=== PATIENT | female | born 1945 | race Caucasian/White ===

== ENCOUNTER 2020-04-29 10:08 | Emergency (ER) | payer OTHER, SELFPAY ==
[2020-04-29 10:17] VITALS: BP 129/74; PULSE 63; RESP 18; TEMP 37.2; O2SAT 99
--- NOTE | 2020-04-29 10:42 | ED.FEMALEGU ---
HPI - Female Genitourinary General Chief complaint: Urogenital-Female Stated complaint: back pain Time Seen by Provider: 04/29/20 10:43 Source: patient Mode of arrival: ambulatory Limitations: no limitations History of Present Illness HPI Narrative: De Argueta is a 74 yo female with c/o back/ R flank pain. States is R flank pain, x 1 month, worse with movement, Seen by pcp, did UA which was negative, continues to bother her intermittently, particularly in the last week. States her maximum pain is 04/23 Related Data Home Medications Medication Instructions Recorded Confirmed aspirin 81 mg PO DAILY 04/29/20 04/29/20 atenolol 50 mg PO DAILY 04/29/20 04/29/20 ergocalciferol (vitamin D2) 1,250 mcg PO WEEKLY 04/29/20 04/29/20 [Vitamin D2] levothyroxine 100 mcg PO DAILY 04/29/20 04/29/20 lisinopril-hydrochlorothiazide 1 tablet PO DAILY 04/29/20 04/29/20 Allergies Allergy/AdvReac Type Severity Reaction Status Date / Time No Known Allergies Allergy Verified 04/29/20 10:41 Review of Systems Review of Systems: Narrative: CONSTITUTIONAL: Denies fever, chills, sweats. EYES: Denies visual changes, redness, discharge. ENT: Denies rhinorrhea, congestion, sore throat, otalgia. CARDIOVASCULAR: Denies chest pain, palpitations, edema. RESPIRATORY: Denies dyspnea, wheezing, cough GASTROINTESTINAL: Denies abdominal pain, nausea, vomiting, diarrhea. GENITOURINARY: Denies dysuria, hematuria, abnormal discharge; has right flank pain SKIN: Denies rash or itching. NEUROLOGIC: Denies numbness, or focal weakness. PSYCHIATRIC: Denies anxiety or depression. [facility], [facility] Past Medical History Medical History HTN (hypertension) Hypothyroid Family History Family History Father Family history of lung cancer Sibling Family history of lung cancer Mother Family history of malignant neoplasm of esophagus Grandparent Family history of heart disease in male family member before age 55 Social History Social History Smoking status: Former smoker Smoking end date: 07/15/72 Comments At time of signature, I agree with nursing past medical, surgical, social and family history. There is no relevant family history pertinent to the presenting complaint. Exam Narrative: Exam Narrative: GENERAL: This is a well-nourished, well-developed patient, in mild distress. HEAD: normocephalic, atraumatic. EYES: Sclera clear/white. Vision is grossly intact. EARS: External ears normal, . Hearing grossly intact. NOSE: External nose normal without nasal discharge, nares without redness, no rhinorrhea. THROAT: Mucous membranes moist, NECK: Neck supple, CARDIOVASCULAR: Regular rate and rhythm without murmurs, gallops, or rubs. RESPIRATORY: Clear to auscultation. Breath sounds equal bilaterally. No wheezes, rales, or rhonchi. GASTROINTESTINAL: Abdomen soft, right flank tender SKIN: warm, intact with no suspicious lesions or rash, good texture and turgor. NEURO: awake, alert, and oriented to person, place and time. There were no obvious focal neurologic abnormalities. Steady gait EXTREMITIES: Normal range of motion. BACK: Nontender without deformity Course Course Emergency Course: Patient here for right flank pain x1 month; saw PCP 3 weeks ago UA shows 1+ leukocyte esterase, given Keflex, muscle relaxant. He does not believe she needs to go back to PCP and get additional blood work Vital Signs Vital signs: Vital Signs Temperature 98.9 F 04/29/20 10:17 Pulse Rate 63 04/29/20 10:17 Respiratory Rate 18 04/29/20 10:17 Blood Pressure 129/74 04/29/20 10:17 Pulse Oximetry 99 04/29/20 10:17 Temperature 98.9 F 04/29/20 10:17 Pulse Rate 63 04/29/20 10:17 Respiratory Rate 18 04/29/20 10:17 Blood Pressure 129/74 04/29/20 10:17 Pulse Oximetry 99 04/29/20
== END 2020-04-29 11:00 | disposition home or self-care (01) ==
PROVIDERS: Emergency Provider Nurse Practitioner
DX: N39.0 Urinary tract infection, site not specified (principal); M54.9 Dorsalgia, unspecified; Z87.891 Personal history of nicotine dependence; I10 Essential (primary) hypertension; E03.9 Hypothyroidism, unspecified; Z79.82 Long term (current) use of aspirin
CPT/HCPCS: 81003; 87077; 87086; 87088; 99203; G0463

== ENCOUNTER 2025-05-03 13:17 | Emergency (ER) | payer OTHER, SELFPAY ==
[2025-05-03 13:24] VITALS: BP 185/65; PULSE 54; RESP 20; TEMP 37.3; O2SAT 98
[2025-05-03 13:53] LABS: EDCOVIDSCREEN Negative (Negative); EDINFLUASCREEN Negative (Negative); EDINFLUBSCREEN Negative (Negative)
--- NOTE | 2025-05-03 13:58 | ED.URI ---
HPI - URI/Sore Throat General Chief Complaint: Upper Respiratory Infection Stated Complaint: Unspecified Time Seen by Provider: 05/03/25 13:35 Source: patient and RN notes reviewed Mode of arrival: ambulatory Limitations: no limitations History of Present Illness HPI Narrative: 80-year-old female presents Express Care complaining of generalized not feeling well since yesterday. Patient denies any upper respiratory symptoms, fevers, body aches, chills, nausea vomiting, diarrhea, chest pain, difficulty breathing, shortness of breath, leg swelling,, abdominal pain, black tarry stools, urinary symptoms, or any other symptoms. Patient reports a history of high blood pressure. Patient has not taken anything up with symptoms. Related Data Home Medications ?Medication ?Instructions ?Recorded ?Confirmed ?Last Taken ?Type aspirin 81 mg tablet 81 mg PO DAILY 04/29/20 04/29/20 Unknown History atenolol 50 mg tablet 50 mg PO DAILY 04/29/20 05/03/25 Unknown History ergocalciferol (vitamin D2) 1,250 1,250 mcg PO WEEKLY 04/29/20 04/29/20 Unknown History mcg (50,000 unit) capsule (Vitamin D2) levothyroxine 100 mcg tablet 100 mcg PO DAILY 04/29/20 05/03/25 Unknown History lisinopril 20 1 tablet PO DAILY 04/29/20 05/03/25 Unknown History mg-hydrochlorothiazide 12.5 mg tablet mirtazapine 15 mg disintegrating mg 05/03/25 Unknown History tablet omeprazole 20 mg capsule,delayed mg 05/03/25 Unknown History release oxybutynin chloride 5 mg mg PO 05/03/25 Unknown History tablet,extended release 24 hr Allergies Allergy/AdvReac Type Severity Reaction Status Date / Time No Known Allergies Allergy Verified 05/03/25 13:29 Review of Systems Review of Systems: CONSTITUTIONAL: Denies fever, chills, body aches, or sweats. Positive for malaise. EYES: Denies visual changes, redness, or discharge. ENT: Denies rhinorrhea, congestion, sore throat, or otalgia. CARDIOVASCULAR: Denies chest pain, palpitations, dizziness, lightheadedness, or edema. RESPIRATORY: Denies cough or dyspnea. GASTROINTESTINAL: Denies abdominal pain, nausea, vomiting, black tarry stools, or diarrhea. GENITOURINARY: Denies dysuria, frequency, hesitancy, or hematuria. SKIN: Denies rash or itching. MUSCULOSKELETAL: Denies back pain, joint pain, or myalgia. NEUROLOGIC: Denies headache, numbness, or weakness. PSYCHIATRIC: Denies anxiety or depression. All other systems reviewed are negative, except as documented in HPI. [facility] Past Medical History Medical History HTN (hypertension) Hypothyroid Family History Family History Father Family history of lung cancer Sibling Family history of lung cancer Mother Family history of malignant neoplasm of esophagus Grandparent Family history of heart disease in male family member before age 55 Social History Social History Smoking status: Former smoker Smoking end date: 07/15/72 Comments At the time of my signature, I reviewed and agree with the nursing past medical, surgical, social, and family history. There is no relevant family history pertinent to the patient complaint. Exam Narrative: GENERAL: This is a well-nourished, well-developed adult, in no apparent distress. They are non ill-appearing, nontoxic appearing. HEAD: normocephalic, atraumatic. EYES: Sclera clear/white. Conjunctiva normal. Vision is grossly intact. Extraocular movements intact EARS: External ears normal, auditory canals clear and without drainage, TMs normal without perforation. Hearing grossly intact. NOSE: External nose normal with no obvious nasal discharge, nasal turbinates without redness, no rhinorrhea. THROAT: Mucous membranes moist, posterior pharynx clear, without erythema or swelling. Uvula midline. Postnasal drip present. NECK: Neck supple, non-tender without lymphadenopathy, masses or thyromegaly. CARDIOVASCULAR: Regular rate and rhythm without murmurs, gallops, or rubs. RESPIRATORY: Clear to auscultation. Breath sounds equal bilaterally. No wheezes, rales, or rhonchi. GASTROINTESTINAL: Abdomen soft, non-tender, nondistended. Bowel sounds are active. No hepato-splenomegaly, or palpable masses. No guarding or rigidity. No rebound tenderness. SKIN: warm, Dry, intact with no suspicious lesions or rash, good texture and turgor. NEURO: awake, alert, and oriented to person, place and time. There were no obvious focal neurologic abnormalities. EXTREMITIES: No joint tenderness, effusion, or edema noted. BACK: Nontender without deformity. No CVA tenderness. Course Course Emergency Course: Portions of this record may have been created with voice recognition software Level of Care: Express Care Visit Vital Signs Vital signs: Vital Signs Temperature 99.1 F 05/03/25 13:24 Pulse Rate 54 L 05/03/25 13:24 Respiratory Rate 20 05/03/25 13:24 Blood Pressure 185/65 H 05/03/25 13:24 Pulse Oximetry 98 05/03/25 13:24 Oxygen Delivery Room Air 05/03/25 13:24 Temperature 99.1 F 05/03/25 13:24 Pulse Rate 54 L 05/03/25 13:24 Respiratory Rate 20 05/03/25 13:24 Blood Pressure 185/65 H 05/03/25 13:24 Pulse Oximetry 98 05/03/25 13:24 Oxygen Delivery Room Air 05/03/25 13:24 Reviewed MDM - URI/Sore Throat MDM Narrative Medical decision making narrative: Rapid COVID and flu were negative. Patient physical exam grossly unremarkable. Postnasal drip was noted on exam. It could be the start of a viral infection. Offered to test patient's urine for urinary tract infection and she declined stating she is not having urinary symptoms. Advised follow-up with PCP in 3-5 days for re-evaluation. Discussed physical exam findings. Advised supportive measures and signs/symptoms to go to the ER. Pt is appropriate for outpt treatment and f/u. Differential Diagnosis Differential diagnosis: Likely upper respiratory infection, viral infection and other (Generalized fatigue, malaise, infection) Lab Data Attestation: I reviewed the patient's lab results. Labs: Lab Results 05/03/25 Range/Units 13:32 POC Influenza A Ag Negative (Negative) POC Influenza B Ag Negative (Negative) POC SARS CoV-2 Ag Negative (Negative) Critical Care Time Critical Care Time Critical Care Time: No Discharge Plan Discharge Clinical Impression: Malaise Patient Disposition: Home Condition: Stable Instructions: Viral Syndrome (ED) Additional Instructions: Your rapid COVID and flu were negative today. This could be the start of a viral illness. Viral illness may last between 7-14 days; antibiotics do not cure viral illness and are NOT recommended at this time. Also, recommend symptomatic treatment includes: rest, fluids, and increase humidity of the air at home. You may take ibuprofen 600 mg to 800 mg every 6-8 hours. Do not exceed more than 800 mg of ibuprofen per dose. Do not exceed more than 3200 mg ibuprofen in a day. You may take up to 1000 mg Tylenol every 6-8 hours. Do not exceed 1000 mg per dose, do exceed more than 4000 mg of Tylenol in a day. Please schedule a follow-up visit with your personal physician for further evaluation and treatment within 3-5days If you develop worsening symptoms, chest pain, difficulty breathing, nausea, vomiting, fevers, abdominal pain, urinary symptoms, confusion, increased lethargy, concerns for dehydration, or any serious concerns please go to the ER immediately. Patient Language: Bermudian Prescriptions: No Action oxybutynin chloride 5 mg tablet extended release 24hr PO omeprazole 20 mg capsule,delayed release(DR/EC) mirtazapine 15 mg tablet,disintegrating lisinopril-hydrochlorothiazide 20-12.5 mg Tablet 1 tablet PO DAILY levothyroxine 100 mcg Tablet 100 mcg PO DAILY ergocalciferol (vitamin D2) [Vitamin D2] 1,250 mcg (50,000 unit) Capsule 1,250 mcg PO WEEKLY atenolol 50 mg Tablet 50 mg PO DAILY aspirin 81 mg Tablet 81 mg PO DAILY cephalexin [Keflex] 500 mg capsule 500 mg PO Q12H 5 Days Qty: 10 0RF baclofen 5 mg tablet 5 mg PO TID Qty: 14 0RF Follow-up/Referrals: PHYSICIAN NOT ON STAFF,NONSTAFF [Primary Care Provider] Time of Disposition: 13:57
--- OUTSIDE RECORDS SUMMARY | 2025-05-03 15:03 | XMS_ITS | Clinical Summary ---
Author Organization [facility] Address [address] [address] Phone Care Team Providers Care Program Clerk Name Role Phone Nahum Thomas MD Primary Care Provider [phone] Allergies No known active allergies Medications atenolol (TENORMIN) 100 MG Tablet Take 100 mg by mouth daily. Active lisinopril-hydro chlorothiazide (PRINZIDE, ZESTORETIC) 20-12.5 MG Tablet Take 1 Tab by mouth daily. Active Omeprazole 20 MG Tablet Delayed Response Take 1 Tab by mouth daily. Active levothyroxine (SYNTHROID) 100 MCG Tablet Take 100 mcg by mouth daily. 04/25/2015 Active Active Problems Problem Noted Date Diagnosed Date Abdominal pain, acute, right upper quadrant 06/15 Hiatal hernia 07/05/2015 GERD without esophagitis 07/05/2015 Diverticulosis of large intestine without hemorr job 07/05/2015 Immunizations Immunization Administration Dates Next Due Influenza Vaccine greater than 3 yrs 06/14/2013 Pneumococcal Vaccine Adult - 23 Valent 9 Family History Medical History Relation Name Comments Lung Cancer Father Cancer Mother esophagus Lung Cancer Sister Relation Name Status Comments Father Mother Sister Social History Tobacco Use Types Packs/Day Years Used Date Smoking Tobacco: Former Cigarettes 0 10/10/1961 - 10/11/1971 Smokeless Tobacco: Never Alcohol Use Standard Drinks/Week Comments No 0 (1 standard drink = 0.6 oz pur e alcohol) Former social drinker Comments No Sex and Gender Information Value Date Recorded Sex Assigned at Not on file Legal Sex Female 12:40 AM CDT Gender Identity Not on file Sexual Orientation Not on file Last Filed Vital Signs Vital Sign Reading Time Taken Comments Blood Pressure 130/80 07/05/2015 2:23 PM SMOKE TESTER Pulse 60 07/05/2015 2:23 PM SMOKE TESTER Temperature 36.7 C (98 F) 07/05/2015 2:23 PM SMOKE TESTER Respiratory Rate 14 07/05/2015 2:23 PM SMOKE TESTER Oxygen Saturation 96% 07/05/2015 2:23 PM SMOKE TESTER Inhaled Oxygen Concentration - - Weight 97.5 kg (215 lb) 12/22/2018 1:00 PM CDT Height 152.4 cm (5') 12/22/2018 1:00 PM CDT Body Mass Index 41.99 12/22/2018 1:00 PM CDT Plan of Treatment Health Maintenance Due Date Last Done Comments Hepatitis C Virus (HCV) Screening 1945 TdaP Immunization 1945 Zoster Immunization (1 of 2) 1994 Pneumococcal Immunization (5 0+ years) (2 of 2 - PCV) 09/12/2009 09/12/2008 Medicare Initial AWV [id number] 07/05/2016 Respiratory Syncytial Virus (RSV) Immunization (Adult) (1 - 1-dose 75+ series) 2019 Influenza Immunization (#1) 03/15/202501/2016, 06/14/2013 SARS-COV-2 Immunization ( season) 2025 Pneumococcal Immunization Combined Discontinued 09/12/2008 Hepatitis B Immunization Aged Out No longer eligible based on patient's age to complete this topic Human Papillomavirus (HPV) Immunization Aged Out No longer eligible based on patient's age to complete this topic Meningococcal Immunization (ACWY) Aged Out No longer eligible based on patient's age to complete this topic Rotavirus Immunization Aged Out No lo nger eligible based on patient's age to complete this topic Insurance MEDICARE C [employer] Care Teams Program Clerk Relationship Specialty Start Date End [place] [address] PCP - General Internal Medicine 12/12/18
--- OUTSIDE RECORDS SUMMARY | 2025-05-03 15:03 | XMS_ITS | Clinical Summary ---
Author Organization [facility] Address [address] [place] [address] Care Team Providers Care Legal Director Name Role Phone Nani Man NP Primary Care Provider [phone] Allergies No known active allergies Medications cholecalciferol (VITAMIN D-3) 2000 unit capsule 1 capsule (2,000 Units total) Patient takes this off and on Active multivitamin capsule Take 1 capsule by mouth daily Active aspirin 81 mg chewable tablet Take 1 tablet (81 mg total) by mouth daily Active atorvastatin (LIPITOR) 10 mg tabletIndications:H yperlipidemia, unspecified hyperlipidemia type Take 1 tablet (10 mg total) by mouth daily 90 tablet 3 4 Active omeprazole (PriLOSEC) 20 mg capsuleIndications: GERD without esophagitis Take 1 capsule (20 mg total) by mouth daily 90 capsule 3 4 Active citalopram (CeleXA) 10 mg tablet Take 1 tablet (10 mg total) by mouth daily 90 tablet 5 10/06/19 26 Active levothyroxine (SYNTHROID) 100 mcg tabletIndications:A cquired hypothyroidism TAKE 1 TABLET BY MOUTH EVERY DAY 90 tablet 1 5 Active atenoloL (TENORMIN) 50 mg tabletIndications:P rimary hypertension TAKE 1 TABLET BY MOUTH EVERY DAY 90 tablet 1 5 Active lisinopril-hydroCHL OROthiazide (ZESTORETIC) 20-12.5 mg per tabletIndications:P rimary hypertension TAKE 1 TABLET BY MOUTH EVERY DAY IN THE MORNING 90 tablet 1 5 Active Active Problems Problem Noted Date Diagnosed Date Preventative health care 02/27/2024 Assessment & Plan (02/27/2024 10:24 AM CDT): - New or chronic worsening conditions: Pelvic floor dysfunction - Mental health: ongoing anxiety, stable for now - Dental health: past due, has lower partial and upper denture, Recommend regular dental care and follow up. - Nutrition: Recommend moderation in sodium/caffeine intake, saturated fat and cholesterol, caloric balance, sufficient intake of fresh fruits, vegetables - Exercise: Recommend to exercise at least 30 minutes moderate to vigorous exercise most days of the week. (minimum 150 minutes weekly) - Immunizations: Age and sex appropriate immunizations reviewed and offered - Cervical Cancer screening: not indicated - Breast Cancer screening: Up to date - Colon cancer screening: not indicated - Lung cancer screening: not indicated - Bone desnity/osteoporosis screening:Recommended, order placed for DEXA - control: Pelvic floor dysfunction in female 02/27/2024 Assessment & Plan (02/27/2024 10:34 AM CDT): - new diagnosis - symptoms consistent with pelvic floor dysfunction and recommend getting a pelvic examination - states in the past OBGYN suspected it but she was not ready to get a pelvic exam at the time and has not been followed up - recommend reaching out to her OBGYN for pelvic exam Hyperlipidemia, unspecified 12/24/2023 Assessment & Plan (12/24/2023 3:12 PM CDT): - chronic condition - status: is adequately controlled. - current management/medications: Atorvastatin 10 mg nightly - other comorbid conditions: hypertension - patient is compliant with medications. - most recent LDL as shown below - maintain a healthy weight, diet - will monitor closely - continue current management LDL 67 on 07/2023 Lab Results Component Value Date LDLCALC 97 10/22/2016 Lab Results Component Value Date ALT 13 12/15/2023 AST 20 12/15/2023 ALKPHOS 78 12/15/2023 BILITOT 0.3 12/15/2023 DONNA (generalized anxiety disorder) 09/23/2023 Assessment & Plan (10/05/2024 9:22 AM CDT): Chronic problem. Not at goal at this time. DONNA-7 score today: 3 FOrmerly on Rx Citalopram 10mg although not compliant. Recommend re-starting the same; sent to pharmacy at this time. Pt admits she is not ready to resume it at this time however would like to have the Rx available at the pharmacy for when she is. Discussed benefit of counseling in addition to medication - pt reports social support from mormonism community is helpful and has a strong desire for God to help her with her anxieties. Mechanism of action side effects explained to patient including onset of potential SE in the first 2 weeks, full effect of the medication 4-6 weeks after starting it. Denies suicidal or homicidal ideation at this time. Emergent behavioral health information given including 911 for worsening symptoms. Assessment & Plan (02/27/2024 10:16 AM CDT): - chronic condition, not at goal - per prior PCP had been discussing this but been hesitant for assistance with medication - two visits to ED for left arm pain due to concern for heart attack with reassuring findings - other causes for anxiety as well - was open to getting assistance with medication - she states she quit the medication after - started 10 mg Citalopram daily for about 2 weeks and after that cut it in half for about 1.5 weeks and then stopped taking the medication, she did not want to be on medications anyway - aware to seek help if needed Assessment & Plan (12/27/2023 9:39 AM CDT): Recommended multiple ways to handle anxiety including increasing exercise and meditation techniques. Consider counseling and medication down the road if worsens. - chronic condition, worse - per prior PCP had been discussing this but been hesitant for assistance with medication - two visits to ED for left arm pain due to concern for heart attack with reassuring findings - other causes for anxiety as well - open to getting assistance with medication - start Citalopram 10mg daily and increase to 20 mg daily after 1 month - f/u in 2 month Assessment & Plan (09/23/2023 4:29 PM CDT): Recommended multiple ways to handle anxiety including increasing exercise and meditation techniques. Consider counseling and medication down the road if worsens. Acute left-sided low back pain without sciatica 09/23/2023 Assessment & Plan (09/23/2023 4:30 PM CDT): Unclear etiology but thankfully short-lived. Possibly muscle spasm. Consideration of physical therapy if returns or return to clinic for repeat evaluation. Pain of left forearm 06/16/2023 Assessment & Plan (12/27/2023 9:42 AM CDT): - recurring condition - two ED visits due to fear she may be having a heart attack - asymptomatic and resolves on its own - no pain, numbness, tingling, weakness or skin changes - see discussion for anxiety EXAM DESCRIPTION: XR ELBOW LEFT 2 VIEWS 12/15/2023 REASON FOR STUDY: pain Pt states she started having left arm pain while getting ready for anglican this morning. Pt states she has been stressed. TECHNIQUE: 3 radiographic view(s) of the left elbow . COMPARISON: None FINDINGS: BONES/JOINTS: There is no acute fracture, malalignment or osseous abnormality. The joint spaces are normal. SOFT TISSUES: Within normal limits. IMPRESSION: No acute osseous abnormality. Assessment & Plan (06/16/2023 7:42 PM PROTECTION MANAGER): Unclear etiology but doubt cardiac sources of discomfort. Currently improved. Reduce holding her cell phone as she may have some compression of the nerve. Consider nerve conduction study if no improvement. Memory loss 05/27/2023 Assessment & Plan (05/27/2023 2:33 PM PROTECTION MANAGER): SLUMS and normal. TSH normal December. Check labs and call back for results. CT with mild volume loss and white matter disease 10/2022. Right lower quadrant abdominal pain 04/08/2023 Assessment & Plan (04/08/2023 2:47 PM CDT): Unclear etiology and body habitus makes examination difficult but pain severe therefore recommend CT abdomen pelvis with p.o. and IV contrast rule out intra abdominal pathology such as appendicitis. CBC hepatic function panel metabolic panel. UA with small leukocyte esterase and culture pending Lumbar back pain 04/08/2023 Overview (12/27/2023): - only did one PT session for lumbar radiculopathy - state she does not know why she was sent there, she did not go back, denies any ongoing back pain Assessment & Plan (04/08/2023 2:47 PM CDT): If CT and laboratory workup unremarkable, may be lumbar radiculopathy and would recommend steroid pack, x-rays of her lumbar spine, physical therapy followed by pain management if needed. Peripheral neuropathy 07/20/2022 Assessment & Plan (01/31/2023 1:42 PM CDT): Again recommended better blood sugar control. Continue B12 supplementation. Consider nerve conduction study if worsens. Assessment & Plan (07/20/2022 8:37 AM PROTECTION MANAGER): Try to lower sugars with low sugar/carb diet increased exercise and weight loss. Check B12 level before next visit. Incomplete bladder emptying 11/29/2021 Healthcare maintenance 07/02/2021 Assessment & Plan (07/20/2022 8:38 AM PROTECTION MANAGER): Flu shot each April. Prevnar 13 today. Tetanus booster every 10 years. COVID and Shingrix recommended. Mammogram yearly. Colonoscopy due March 2029. Will see her back in 6 months with lab sooner if needed. Assessment & Plan (07/02/2021 10:07 AM PROTECTION MANAGER): We discussed a comprehensive list of medical conditions and proposed recommendations for each. We discussed the importance of increased exercise, fall prevention, proper nutrition, and suggested joining [facility] to accomplish most of these goals. Patient was given an age appropriate Medicare preventive services checklist. Please see the EMR regarding details of their health risk assessment and preventive services checklist. Will see her back in 3 months sooner if needed. Urinary hesitancy 05/22/2021 Assessment & Plan (07/02/2021 10:07 AM PROTECTION MANAGER): Urological referral for urinary hesitancy and nocturia. IFG (impaired fasting glucose) 05/22/2021 Assessment & Plan (12/24/2023 3:09 PM CDT): - chronic, stable - Patient should reduce sugar and carbs, increase exercise, maintain proper body weight, and will check an A1c once or twice yearly. - most recent A1c trend has shown below - continue with monitoring regularly Lab Results Component Value Date HGBA1C 5.7 (H) 01/11/2023 HGBA1C 5.8 (H) 05/10/2022 HGBA1C 5.7 (H) 05/09/2021 Assessment & Plan (09/23/2023 4:29 PM CDT): Patient should reduce sugar and carbs, increase exercise, maintain proper body weight, and will check an A1c once or twice yearly. Assessment & Plan (01/31/2023 1:42 PM CDT): Patient should reduce sugar and carbs, increase exercise, maintain proper body weight, and will check an A1c once or twice yearly. Assessment & Plan (07/20/2022 8:36 AM PROTECTION MANAGER): Patient should reduce sugar and carbs, increase exercise, maintain proper body weight, and will check an A1c once or twice yearly. Assessment & Plan (08/24/2021 3:28 PM PROTECTION MANAGER): Patient should reduce sugar and carbs, increase exercise, maintain proper body weight, and will check an A1c once or twice yearly. Assessment & Plan (07/02/2021 10:06 AM PROTECTION MANAGER): Patient should reduce sugar and carbs, increase exercise, maintain proper body weight, and will check an A1c once or twice yearly. At increased risk for cardiovascular disease 11/2020 Overview (09/23/2023): Patient decreased atorvastatin to 1/2 tablet end of 2022 due to perceived memory loss. Assessment & Plan (09/23/2023 4:29 PM CDT): LDL well controlled on atorvastatin 5 mg daily. Assessment & Plan (01/31/2023 1:42 PM CDT): Continue atorvastatin check lipids and LFTs before next visit. LDL has been well controlled on her atorvastatin. Assessment & Plan (07/20/2022 8:36 AM PROTECTION MANAGER): LDL well controlled on her atorvastatin. Assessment & Plan (08/24/2021 3:28 PM PROTECTION MANAGER): LDL well controlled on her atorvastatin check lipids and LFTs again before next visit. Assessment & Plan (07/02/2021 10:06 AM PROTECTION MANAGER): Statin therapy again recommended will check lipids and LFTs before next visit. Assessment & Plan (04/18/2021 10:25 AM CDT): With her elevated risk for ASCVD and evidence of coronary artery disease on her CT scan, will start atorvastatin 10 mg p.o. q.h.s. and check lipids and LFTs before next visit. Low bone mass 05/19/2020 Assessment & Plan (12/27/2023 9:41 AM CDT): - chronic condition - recommend Calcium, vitamin-D, weight-bearing exercise - last DEXA from 04/2019 DXA LEFT HIP RESULTS SUMMARY: 1. Femoral neck BMD 0.725 (g/cmsquared); T-SCORE -1.1 2. Total hip BMD 0.981 (g/cmsquared); T-SCORE 0.3 Lab Results Component Value Date CALCIUM 9.8 12/15/2023 No results found for: 25HYDROVITD Assessment & Plan (01/31/2023 1:42 PM CDT): Calcium, vitamin-D, weight-bearing exercise. Assessment & Plan (07/20/2022 8:36 AM PROTECTION MANAGER): Calcium, vitamin-D, weight-bearing exercise. Assessment & Plan (07/02/2021 10:06 AM PROTECTION MANAGER): Calcium, vitamin-D, weight-bearing exercise Assessment & Plan (11/17/2020 9:41 AM CDT): Calcium, vitamin-D, weight-bearing exercise repeat bone density scans approximately every 2 years. Assessment & Plan (05/19/2020 10:16 AM PROTECTION MANAGER): Calcium, vitamin-D, weight-bearing exercise repeat bone density scan every 2 years. 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 If no improvement, call back for physical therapy followed by pain management if necessary. Assessment & Plan (05/19/2020 10:18 AM PROTECTION MANAGER): Stretching exercises demonstrated. Sports cream with lidocaine. Heating pad. Call back if no improvement for physical therapy consultation. X-rays in March 2019 showed degenerative changes. Assessment & Plan (04/11/2019 11:38 AM CDT): c-spine xr ordered. Cyclobenzaprine sent. Reviewed med SE & scheduling. Encouraged otc tylenol/ibuprofen prn back pain. Discussed ice, gentle ROM,& other non pharm methods of pain relief. Reviewed red flags. Ventral hernia without obstruction or gangrene 0 01/30/2019 Assessment & Plan (01/30/2019 1:32 PM CDT): Discussed wt loss, abd binder to help prevent straining. Discussed referral to surgery for eval. Reviewed red flags. Denies any bowel issues at this time. Will contact/call if she changes her mind. Class 2 severe obesity due t o excess calories with serious comorbidity and body mass index (BMI) of 37.0 to 37.9 in adult 12/10/2018 Assessment & Plan (10/05/2024 9:19 AM CDT): Chronic condition. Improving however not at goal BMI less than 30. Wt Readings from Last 3 Encounters: 10/05/24 90.3 kg (199 lb) 02/27/24 87.2 kg (192 lb 4.8 oz) 12/24/23 92.3 kg (203 lb 6.4 oz) Body mass index is 38.86 kg/m . BMI plan includes nutrition and exercise changes, as weight loss will improve overall health and exercise may improve mental health as well. Assessment & Plan (02/27/2024 10:03 AM CDT): Wt Readings from Last 3 Encounters: 02/27/24 87.2 kg (192 lb 4.8 oz) 12/24/23 92.3 kg (203 lb 6.4 oz) 12/15/23 99.8 kg (220 lb) Body mass index is 37.56 kg/m . - chronic condition, not at goal --> but improved with weight loss noted - BMI Follow-up includes: nutrition counseling, exercise counseling and education provided - Recommend to exercise at least 30 minutes moderate to vigorous exercise most days of the week. (minimum 150 minutes weekly) - comorbidities - hypertension, hyperlipidemia Assessment & Plan (12/27/2023 9:44 AM CDT): Wt Readings from Last 3 Encounters: 12/24/23 92.3 kg (203 lb 6.4 oz) 12/15/23 99.8 kg (220 lb) 09/23/23 94.3 kg (207 lb 12.8 oz) Body mass index is 39.72 kg/m . - chronic condition, not at goal - BMI Follow-up includes: nutrition counseling, exercise counseling and education provided - Recommend to exercise at least 30 minutes moderate to vigorous exercise most days of the week. (minimum 150 minutes weekly) - comorbidities - hypertension, hyperlipidemia Assessment & Plan (09/23/2023 4:28 PM CDT): Patient is encouraged to lose weight with a combination of caloric reduction and increased exercise. Various strategies discussed. The long-term risks associated with continued morbid obesity discussed. Assessment & Plan (06/16/2023 7:41 PM PROTECTION MANAGER): Patient is encouraged to lose weight with a combination of caloric reduction and increased exercise. Various strategies discussed. The long-term risks associated with continued morbid obesity discussed. Assessment & Plan (04/08/2023 2:47 PM CDT): Patient is encouraged to lose weight with a combination of caloric reduction and increased exercise. Various strategies discussed. The long-term risks associated with continued morbid obesity discussed. Assessment & Plan (01/31/2023 1:43 PM CDT): Patient is encouraged to lose weight with a combination of caloric reduction and increased exercise. Various strategies discussed. The long-term risks associated with continued morbid obesity discussed. Assessment & Plan (11/17/2020 9:42 AM CDT): Patient is encouraged to lose weight with a combination of caloric reduction and increased exercise. Various strategies discussed. The long-term risks associated with continued morbid obesity discussed. Assessment & Plan (08/10/2020 1:23 PM PROTECTION MANAGER): Patient is encouraged to lose weight with a combination of caloric reduction and increased exercise. Various strategies discussed. The long-term risks associated with continued morbid obesity discussed. Assessment & Plan (05/19/2020 10:16 AM PROTECTION MANAGER): Patient is encouraged to lose weight with a combination of caloric reduction and increased exercise. Various strategies discussed. The long-term risks associated with continued morbid obesity discussed. Assessment & Plan (05/01/2019 9:15 AM CDT): Reviewed need to lose weight, reviewed health benefits. Reviewed recommendations for daily intake & activity 20-30 minutes/day. Discussed healthy diet and importance of regular physical activity. Need to increase weight bearing exercises (osteopenia on DEXA) Assessment & Plan (04/11/2019 11:38 AM CDT): Reviewed need to lose weight, reviewed health benefits. Reviewed recommendations for daily intake & activity 20-30 minutes/day. Discussed healthy diet and importance of regular physical activity. Very sedentary lifestyle. Assessment & Plan (01/30/2019 10:59 AM CDT): Reviewed need to lose weight, reviewed health benefits. Reviewed recommendations for daily intake & activity 20-30 minutes/day. Discussed healthy diet and importance of regular physical activity. Assessment & Plan (12/24/2018 8:51 AM CDT): Obesity is stable. Discussed the patient's BMI. The BMI is above average; BMI management plan is completed. General weight loss/lifestyle modification strategies discussed (elicit support from others; identify saboteurs; non-food rewards, etc). Behavioral treatment: low fat/calorie/carb diet, lean proteins. Diet interventions: low fat/calorie/carb diet, lean proteins. Informal exercise measures discussed, e.g. taking stairs instead of elevator. Regular aerobic exercise program discussed. Reviewed need to lose weight, reviewed health benefits. Reviewed recommendations for daily intake & activity 20-30 minutes/day. The BMI is in the obese range thus increasing your risk for cardiovascular, endocrine, GI, and musculoskeletal problems. Strive to cut back on calories and increase exercise to achieve weight loss. Include at least 4-5 fruits and vegetables in the diet daily and exercise for about 30 min nearly every day. Limit fried and high fat foods and include lean sources of protein as well as low fat dairy or other calcium sources. Consider making short and longterm goal to track your progress. Keep a diet/exercise record or on line resource to track calories in and out. Nasal vestibulitis 12/13/2017 Assessment & Plan (12/13/2017 9:23 AM CDT): Patient demonstrates mild vestibulitis within the right neck vestibule of the nostril. Hydrocortisone cream will be applied topically b.i.d. for 10 days. Patient is reassured that this appears to be a self-limiting issue. Vitamin D deficiency 09/11/2017 Assessment & Plan (02/27/2024 10:05 AM CDT): - chronic condition, well controlled - has hx of low bone mass - on vitamin D supplementation 2000 IU daily - reviewed most recent labs was adequately controlled, continue current management No results found for: 25HYDROVITD Assessment & Plan (12/27/2023 9:49 AM CDT): - hx of low bone mass - on vitamin D supplementation - check labs, order placed No results found for: 25HYDROVITD Assessment & Plan (09/23/2023 4:28 PM CDT): Increase daily supplementation slightly. Check level down the road. Assessment & Plan (01/31/2023 1:42 PM CDT): Continue supplementation check level before next visit. Assessment & Plan (07/20/2022 8:36 AM PROTECTION MANAGER): Continue current supplementation and check level in 1 year. Assessment & Plan (07/02/2021 10:06 AM PROTECTION MANAGER): Continue current supplementation and check level in 1 year. Assessment & Plan (11/17/2020 9:41 AM CDT): Continue vitamin-D supplementation and check level before next visit. Assessment & Plan (05/19/2020 10:16 AM PROTECTION MANAGER): Continue supplementation check levels yearly. Assessment & Plan (01/30/2019 1:30 PM CDT): Has not been taking vitamin D The blood level will be checked today. Advise to get 10 min of sun exposure to the hands and face 2-3 days of the week to boost Vit D levels. Aware that she may need to go back on 50,000iu weekly pending results. GERD without esophagitis 07/05/2015 Assessment & Plan (12/24/2023 3:10 PM CDT): - chronic condition, stable status - currently on omeprazole 20 mg daily - continue current management Assessment & Plan (01/31/2023 1:42 PM CDT): Well controlled on omeprazole Assessment & Plan (07/20/2022 8:36 AM PROTECTION MANAGER): Well controlled on omeprazole. Assessment & Plan (07/02/2021 10:06 AM PROTECTION MANAGER): Well controlled on omeprazole. Assessment & Plan (06/05/2021 12:22 PM PROTECTION MANAGER): egd Continue ppi Assessment & Plan (11/17/2020 9:41 AM CDT): Well controlled on omeprazole. Assessment & Plan (05/19/2020 10:16 AM PROTECTION MANAGER): Continue current PPI and the patient is aware of the long-term risks posed by chronic PPI usage. Calcium supplementation recommended. Acquired hypothyroidism 05/21/2014 Assessment & Plan (10/05/2024 9:22 AM CDT): - chronic condition, stable based on 08/2024 labs. Continue current Rx: Levothyroxine 100 mg half tablet on Sundays and full tablet the rest of the week - takes it early in the morning on an empty stomach Assessment & Plan (02/27/2024 10:06 AM CDT): - chronic condition - status: stable/at goal - any hx of surgery, radiation: unknown - current medication: Levothyroxine 100 mg half tablet on Sundays and full tablet the rest of the week - takes it early in the morning on an empty stomach - most recent labs as shown below - continue current management with changes as indicated above if applicable Lab Results Component Value Date TSH 0.57 01/02/2024 TSH 1.46 08/02/2023 TSH 1.31 01/11/2023 FREET4 1.2 08/02/2023 FREET4 1.3 01/11/2023 FREET4 1.3 05/10/2022 Assessment & Plan (12/24/2023 3:16 PM CDT): - chronic condition - status: stable/at goal - any hx of surgery, radiation: unknown - current medication: Levothyroxine 100 mg half tablet on Sundays and full tablet the rest of the week - takes it early in the morning on an empty stomach - most recent labs as shown below - continue current management with changes as indicated above if applicable Lab Results Component Value Date TSH 1.46 08/02/2023 TSH 1.31 01/11/2023 TSH 0.24 (L) 05/10/2022 FREET4 1.2 08/02/2023 FREET4 1.3 01/11/2023 FREET4 1.3 05/10/2022 Assessment & Plan (09/23/2023 4:28 PM CDT): Continue current dose of levothyroxine check TSH and FT4 after next visit and adjust dose based on results. Assessment & Plan (01/31/2023 1:41 PM CDT): Patient is asymptomatic on current dose of levothyroxine and TSH free T4 are normal and we will repeat levels before next visit. Assessment & Plan (07/20/2022 8:36 AM PROTECTION MANAGER): Reduce levothyroxine to half tablet 1 day a week and full tablet otherwise. Repeat TSH and free T4 before next visit. Assessment & Plan (08/24/2021 3:28 PM PROTECTION MANAGER): Patient is asymptomatic on current dose of levothyroxine and TSH free T4 are normal and we will repeat levels before next visit. Assessment & Plan (07/02/2021 10:05 AM PROTECTION MANAGER): Patient is asymptomatic on current dose of levothyroxine and TSH free T4 are normal and we will repeat levels before next visit. Assessment & Plan (04/18/2021 10:24 AM CDT): Continue current dose of levothyroxine check levels before next visit. Assessment & Plan (11/17/2020 9:41 AM CDT): Patient is asymptomatic on current dose of levothyroxine and TSH free T4 are normal and we will repeat levels before next visit. Assessment & Plan (05/19/2020 10:16 AM PROTECTION MANAGER): Patient is asymptomatic on current dose of levothyroxine and TSH free T4 are normal and we will repeat levels before next visit. Assessment & Plan (05/01/2019 9:14 AM CDT): TSH/T4 ordered; will have done prior to appt in 6 mos. Reviewed med Ses & scheduling. Reviewed sxs hypo/hyperthyroidism. No changes at this time. Assessment & Plan (01/30/2019 1:28 PM CDT): TSH/T4 ordered; will call w/results when rec'd. Reviewed med Ses & scheduling. Reviewed sxs hypo/hyperthyroidism. No changes at this time. Primary hypertension 05/21/2014 Assessment & Plan (10/05/2024 9:18 AM CDT): BP Readings from Last 3 Encounters: 10/05/24 104/78 02/27/24 136/74 12/24/23 114/70 Chronic condition. At goal SBP < 140. Continue lisin-HCTZ 20-12.5mg daily as Rx. Recommend heart-healthy diet Assessment & Plan (02/27/2024 10:05 AM CDT): Blood Pressure Management BP Readings from Last 3 Encounters: 02/27/24 136/74 12/24/23 114/70 12/15/23 101/88 Chronic condition Status - is adequately controlled. Current medications are: Lisinopril-hydrochlorothiazide 20-12.5 mg daily, atenolol 50 mg daily Patient is compliant with medications. Patient denies any side effects or adverse side effects from the medication/s. Follow a low salt diet Monitor blood pressure regularly at home Continue current management unless change made above The ASCVD Risk score (Ashish DOUGLASS, et al., 2019) failed to calculate for the following reasons: The valid total cholesterol range is 130 to 320 mg/dL Lab Results Component Value Date LDLCALC 97 10/22/2016 Lab Results Component Value Date GLUCOSE 108 (H) 01/02/2024 CALCIUM 9.8 01/02/2024 SODIUM 138 01/02/2024 POTASSIUM 3.7 01/02/2024 CO2 30 01/02/2024 CHLORIDE 100 01/02/2024 BUNSER 9 01/02/2024 CREATININE 0.66 01/02/2024 Assessment & Plan (12/24/2023 3:09 PM CDT): Blood Pressure Management BP Readings from Last 3 Encounters: 12/24/23 114/70 12/15/23 101/88 09/23/23 118/60 Chronic condition Status - is adequately controlled. Current medications are: Lisinopril-hydrochlorothiazide 20-12.5 mg daily, atenolol 50 mg daily Patient is compliant with medications. Patient denies any side effects or adverse side effects from the medication/s. Follow a low salt diet Monitor blood pressure regularly at home Continue current management unless change made above The 10-year ASCVD risk score (Ashish DOUGLASS, et al., 2019) is: 26.3% Values used to calculate the score: Age: 78 years Sex: Female Is Non- : No Diabetic: No Tobacco smoker: No Systolic Blood Pressure: 114 mmHg Is BP treated: Yes HDL Cholesterol: 60 mg/dL Total Cholesterol: 148 mg/dL Lab Results Component Value Date LDLCALC 97 10/22/2016 Lab Results Component Value Date GLUCOSE 112 12/15/2023 CALCIUM 9.8 12/15/2023 SODIUM 135 12/15/2023 POTASSIUM 3.9 12/15/2023 CO2 28 12/15/2023 CHLORIDE 98 12/15/2023 BUNSER 9 12/15/2023 CREATININE 0.56 (L) 12/15/2023 Assessment & Plan (09/23/2023 4:28 PM CDT): Blood pressure well controlled on atenolol, lisinopril, hydrochlorothiazide. Patient will follow-up with Dr. Sorenson for her wellness visit in 3 months and future primary care thereafter due to my leaving the area. Assessment & Plan (04/08/2023 2:48 PM CDT): Blood pressure well controlled on lisinopril hydrochlorothiazide Assessment & Plan (01/31/2023 1:42 PM CDT): Blood pressure well controlled on atenolol, lisinopril, hydrochlorothiazide Assessment & Plan (07/20/2022 8:36 AM PROTECTION MANAGER): Well controlled on the current regimen. Avoidance of salt, proper body weight, and routine exercise recommended. Assessment & Plan (08/24/2021 3:28 PM PROTECTION MANAGER): Well controlled on the current regimen. Avoidance of salt, proper body weight, and routine exercise recommended. Assessment & Plan (07/02/2021 10:06 AM PROTECTION MANAGER): Well controlled on the current regimen. Avoidance of salt, proper body weight, and routine exercise recommended. Assessment & Plan (04/18/2021 10:24 AM CDT): Well controlled on the current regimen. Avoidance of salt, proper body weight, and routine exercise recommended. Assessment & Plan (11/17/2020 9:41 AM CDT): Well controlled on the current regimen. Avoidance of salt, proper body weight, and routine exercise recommended. Assessment & Plan (05/19/2020 10:16 AM PROTECTION MANAGER): Well controlled on the current regimen. Avoidance of salt, proper body weight, and routine exercise recommended. Assessment & Plan (05/01/2019 9:14 AM CDT): The blood pressure is under good control. Ideally it should be under 130/80. Continue medications without adjustment. Continue efforts to eat well (4-5 fruits and veggies) daily and exercise for about 30 min nearly every day. Watch salt intake, keeping to less than 2000mg per day. Limit alcohol. Include strategies to cope with stress. Labs ordered today; will have completed prior to appt in 6 mos Assessment & Plan (01/30/2019 1:28 PM CDT): The blood pressure is under good control. Ideally it should be under 130/80. Continue medications without adjustment. Continue efforts to eat well (4-5 fruits and veggies) daily and exercise for about 30 min nearly every day. Watch salt intake, keeping to less than 2000mg per day. Labs ordered today; will contact w/results once received. Hiatal hernia 05/21/2014 Resolved Problems Problem Noted Date Diagnosed Date Resolved Date Fall 10/18/2022 12/24/2023 Assessment & Plan (10/19/2022 8:32 AM CDT): Mechanical fall Foot slipped on his shower map Not on any blood thinners Imaging in the ED all negative Instructed to get anti slip material for the floor. Can consider a grab bar Given information on the life alert F/u prn Paresthesias 08/24/2021 12/24/2023 Assessment & Plan (08/24/2021 3:30 PM PROTECTION MANAGER): Possibly sequelae of COVID infection. We also discussed possibility of nerve compression. If symptoms progress would recommend calling back for nerve conduction study/EMG. At low risk for fall 07/02/2021 024 Assessment & Plan (07/02/2021 10:07 AM PROTECTION MANAGER): Timed get up and go test normal. Pneumonia due to COVID-19 virus 04/18/2021 12/24/2023 Assessment & Plan (04/18/2021 10:25 AM CDT): Seems like she is doing very well and would ask that she continue to increase her activities and call us back if her symptoms do not completely resolve. Right flank pain 05/19/2020 12/24/2023 Assessment & Plan (08/10/2020 1:23 PM PROTECTION MANAGER): Presumed urinary tract infection. Start Cipro. Check UA and culture and CBC/CMP. Call back if no improvement. Assessment & Plan (05/19/2020 10:17 AM PROTECTION MANAGER): Probably kidney stone based on description. CT renal stone protocol and call back for results. Urine testing and other lab work today and call back for results. If workup unremarkable, would then consider musculoskeletal sources and then recommend physical therapy. Refused influenza vaccine 04/09/2019 Assessment & Plan (05/01/2019 9:01 AM CDT): Will wait for HD flu shot when shipment is rec'd. Office to call her. Assessment & Plan (04/09/2019 3:29 PM CDT): No HD flu vaccines available. Will call/rtc for HD flu vaccine once it returns. Annual physical exam 01/30/2019 020 Assessment & Plan (01/30/2019 11:05 AM CDT): 1. Eat a healthy diet: focus on lean meats and proteins, more fruits, vegetables and whole grains and low in sugars and fats. Limit red meat and avoid processed meat. 2. Maintain a healthy weight; avoid being overweight. Aim for a normal body mass index (BMI) of 18.5-24.9. Help learning to eat healthier, we can set up appointment with still runner/mail processing clerk. 3. Have an active lifestyle, strive for 30 minutes of moderate exercise 5 times a week and strength or resistance training at least twice a week. 4. Use broad-spectrum (UVA+UVB) sunscreen with SPF 30 or greater, is water resistant, limit time spent in the sun (10 am-4pm), wear hat, wear UV protective clothing, wear sunglasses. Never use a tanning bed. Skin that was irradiated may be more sensitive over your lifetime. 5. Do not smoke or chew tobacco. 6. Limit alcohol intake, 1 drink per day for a woman. Breast cancer screening 01/30/20190 11/2019 Assessment & Plan (01/30/2019 10:58 AM CDT): Last mamm 02/18/18; next due 02/19/19 or later. Mammogram order given; will call with results when received. Encouraged to perform monthly SBE. Encounter for screening for lipoid disorders 9 12/24/2023 Assessment & Plan (05/01/2019 9:15 AM CDT): Lipid panel ordered; will complete prior to appt in 6 mos Reviewed diet/exercise recommendations. Assessment & Plan (01/30/2019 1:31 PM CDT): Lipid panel ordered; will call w/results when received. Reviewed diet/exercise recommendations. Vitamin B deficiency 01/30/2019 019 Assessment & Plan (01/30/2019 1:32 PM CDT): H/o vitamin B deficiency. Labs ordered; will contact w/results once rec'd. New persistent daily headache 12/24/2018 05/19/2020 Assessment & Plan (12/24/2018 8:53 AM CDT): Headaches are newly identified. Advised to keep a headache diary. Further diagnostic evaluation per orders. MRI brain w wo ordered. Aware that insurance authorization must be obtained before it can be scheduled. Reviewed red flags that would warrant more emergent eval at ED if occurs while waiting on insurance authorization. To call office after MRI completed so we can look for results. Occipital pain 12/10/2018 12/24/2023 Assessment & Plan (12/24/2018 8:52 AM CDT): MRI brain w wo ordered. Aware that insurance authorization must be obtained before it can be scheduled. Reviewed red flags that would warrant more emergent eval at ED if occurs while waiting on insurance authorization. To call office after MRI completed so we can look for results. Mass of skin of left shoulder 09/12/2018 12/27/2023 Nostril sore 10/09/2017 12/10/2018 Assessment & Plan (10/10/2017 8:58 AM CDT): Feels bumps in right nostril that seems like it is getting worse to the patient. Seems like her right nostril runs all the time. Assessment shows some irritation and mucosal edema. Will send to ENT for a closer look. Pt. Very worrisome about it. Hallux valgus (acquired), right foot 09/12/2017 12/10/2018 Assessment & Plan (10/10/2017 8:55 AM CDT): Saw Ortho Dr. Zuniga. Recommend seeing fabric worker supervisor which patient is aware but has not made appointment. Foot with less pain but still swollen. Is wearing a brace for extra support. Will need to be fitted for shoes with better support. Recommend weight loss also. Postmenopausal 09/11/2017 12/27/2023 Assessment & Plan (01/30/2019 1:29 PM CDT): DEXA bone scan & vitamin d level ordered. Will contact w/results once rec'd. 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 12/10/2018 Nuclear senile cataract 06/05/201012/13 Shortness of breath 05/19/20 20 Encounters Date Type Department Care Team Description 03/01/2025 [facility] [address] [address] Nae Patricio MA 02/26/2025 [facility] [address] [address] Nae Patricio MA 02/25/2025 9:05 AM CDT - 02/25/2025 10:59 AM CDT Emergency [facility] Emergency Department [address] [place] [address] Fall, initial encounter (Primary Dx); Closed head injury, initial encounter Discharge Disposition: Discharge to home or self care from Last 3 Months Immunizations Immunization Administration Dates Next Due Influenza, Quad, Adjuvantate d, Intramuscular 05/01/2022 Influenza, Quadrivalent, Hig h Dose, Preservative Free, Intrr 05/19/2020 Influenza, Quadrivalent, Spl it, Intramuscular 07/21/2015 Influenza, Quadrivalent, Spl it, Preservative Free, Intramuscular 07/25/2017,05/03/2016 Influenza, Trivalent, Cell Culture-based MDCK, Preservative Free, Antibiotic Free, Intramuscular 06/23/2013 Influenza, Trivalent, High D ose, Split, Preservative Free, Intramuscular 05/01/2019,06/04/2018 Influenza, Trivalent, IM (MDV) 06/14/2013 Influenza, Trivalent, Recomb inant, Egg Free, Preservative Free, Antibiotic Free, IM (FLUBLOK) 07/15/2012 Influenza, Unspecified 10/05/2024(Deferr ed: Patient Refused),02/27/2024(Deferred: Patient Refused),02/27/2024(Deferred: Patient Refused),05/22/2021(Deferred: Patient Refused),04/18/2021(Deferred: Patient Refused),04/14/2021(Deferred: Patient Refused),05/19/2020(Deferred: Patient Refused),07/25/2017 Pneumococcal Conjugate PCV 13 07/20/2022 Pneumococcal Polysaccharide PPV23 09/12/2018,,09/12/2008 Tdap 08/15/2015 ZOSTER Recombinant 04/06/2023,02/02/2023 Surgical History Surgery Date Site/Laterality Comments CHOLECYSTECTOMY Cholecystectomy HERNIA REPAIR Hernia repair SECTION C/s OTHER SURGICAL HISTORY Removal of cancerous mole OTHER SURGICAL HISTORY D&C COLONOSCOPY 07/15/2011 - 07/14/2012 HERNIA REPAIR Medical History Medical History Date Comments Hx Other Medical hypothyroidism; Comments: CLS 05/21/2014 - Hypertension Hypertension Cancer (HCC) Thyroid disease Gastric reflux Hiatal hernia Cataract 2018 Bilateral 2017 and 02/06/2018 Nostril sore 10/09/2017 Hallux valgus (acquired), right foot 09/12/2017 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 Diverticulosis GERD (gastroesophageal reflux disease) Hyperlipidemia Hypothyroidism Family History Medical History Relation Name Comments Other Brother 3 other reason; C ause of : other reason Other Brother 4 other reason; C ause of : other reason Lung cancer Father Cancer, lung; C ause of : Cancer, lung Esophageal cancer Mother Other Mother ersa; Cause of : ersa Arthritis Other Cancer Other Diabetes Other Heart disease Other Hypertension Other Breast cancer Neg Hx Ovarian cancer Neg Hx Thyroid cancer Neg Hx Relation Name Status Comments Brother 1 (Age 24) Brother 2 (Age 42) Brother 3 Brother 4 Father (Age 74) Mother (Age 60) Other Social History Tobacco Use Types Packs/Day Years Used Date Smoking Tobacco: Former Cigarettes 1 10 1 07/19/1962 - 05/19/1973 Smokeless Tobacco: Never Tobacco Cessation:Counseling Given: Not Answered Comments:Smoking History Packs/day: 1 Packs Alcohol Use Standard Drinks/Week Comments No 0 (1 standard drink = 0.6 oz pur e alcohol) AUDIT-C Answer Date Recorded Q1: How often do you have a drink containing alcohol? Never 02/27/2024 Q2: How many drinks containi ng alcohol do you have on a typical day when you are drinking? Patient does not drink Q3: How often do you have si x or more drinks on one occasion? Never 02/27/2024 PHQ-2 Answer Date Recorded PHQ-2 Total Score (If total score is 3 or more points, staff should administer the PHQ-9) 0 10/05/2024 Personal Safety Answer Date Recorded Have you ever been in or are you currently in a harmful physical or emotional relationship or is someone making you feel afraid or unsafe? Denies 02/25/2025 Comments No Sex and Gender Information Value Date Recorded Sex Assigned at Not on file Legal Sex Female 12:48 AM PROTECTION MANAGER Gender Identity Not on file Sexual Orientation Not on file Obstetrics History Para Term AB IAB SAB Ectopic Multiple Livin g Live Births 2 2 2 Date Outcome GA Total Labor Labor/2nd/3rd Weight Sex Type Anes PTL Tamy A1 A5 Name Clin Term Term Last Filed Vital Signs Vital Sign Reading Time Taken Comments Blood Pressure 150/84 02/25/2025 10:59 AM CDT Pulse 70 02/25/2025 10:59 AM CDT Temperature 36.3 C (97.3 F) 02/25/2025 9:08 AM CDT Respiratory Rate 18 02/25/2025 10:59 AM CDT Oxygen Saturation 98% 02/25/2025 10:59 AM CDT Inhaled Oxygen Concentration - - Weight 93 kg (205 lb) 02/25/2025 9:08 AM CDT Height 152.4 cm (5') 02/25/2025 9:08 AM CDT Body Mass Index 40.04 02/25/2025 9:08 AM CDT Plan of Treatment Health Maintenance Due Date Last Done Comments Osteoporosis Screening-Bone Density Scan 04/30/2021 04/30/2019 Breast Cancer Screening-Mammogram 08/02/2024 08/02/2023, 06/21/2022, 06/16/2021, Additional history exists Well Visit 65+ 02/26/2025 02/27/2024, 12/2022, 05/22/2021, Additional history exists Influenza Vaccine (#1) 2025 2, 05/19/2020, 05/01/2019, Additional history exists DTaP/Tdap/Td Vaccine (2 - Td or Tdap) 08/15/2025 08/15/2015 Depression Screening 10/05/2025 10/05/2024, 02/27/2024, 12/24/2023, Additional history exists Fall Risk Assessment 10/05/2025 10/05/2024, 02/27/2024, 12/24/2023, Additional history exists Colon Cancer Screening-Colonoscopy 04/03/2029 04/03/2019, 12/03/2011 Colon Cancer Screening-CT Colonography Discontinued 04/03/2019, 12/03/2011 Colon Cancer Screening-DNA Stool Discontinued 04/03/20 19, 12/03/2011 Colon Cancer Screening-FIT Discontinued 04/03/2019, Colon Cancer Screening-Sigmoidoscopy Discontinued 04/03/2019, 12/03/2011 Pneumococcal vaccine 65+ Completed 023, 09/12/2018, 05/08/2010, Additional history exists Zoster Vaccine Completed 04/06/2023, 02/02/2023 Hepatitis B Screening Completed 01/02/2024 Procedures Procedure Name Priority Date/Time Associated Diagnosis Comments CT CERVICAL SPINE WO CONTRAST ED 02/25/2025 10:[address] HEAD WO CONTRAST ED 02/25/2025 1 0:04 AM CDT SCREENING MAMMOGRAM BILATERAL W GREGG Schedule Routine, Read Routine (OP Routine) 08/02/2023 2:41 PM PROTECTION MANAGER Screening mammogram for breast cancer DEXA AXIAL SKELETON BONE DENSITY 1 OR MORE SITES Schedule Routine, Read Routine (OP Routine) 04/30/2019 2:16 PM CDT Postmenopausal Vitamin D deficiency COLONOSCOPY 04/03/2019 9:34 AM CDT from Last 3 Months or Most Recently Relevant to Health Maintenance Results * CT Cervical Spine WO Contrast (02/25/2025 10:04 AM CDT) Anatomical Region Laterality Modality Spine N/A Computed Tomogra phy 02/25/2025 10:3 6 AM CDT Narrative 02/25/2025 10:41 AM CDT EXAM DESCRIPTION: CT CERVICAL SPINE WO CONTRAST REASON FOR STUDY: Fall with head injury Fall today hitting her head, small laceration and swelling to right eyebrow TECHNIQUE: Axial images through the cervical spine with sagittal and coronal reformatted images. Automated exposure control was used as a dose optimization technique for this examination. COMPARISON: 04/09/2019 FINDINGS: ALIGNMENT: Normal. VERTEBRAE: No fracture. Vertebral body heights well-maintained. DISCS: Moderately severe degenerative changes most pronounced C4 through C7 with loss of disc height, sclerosis, spur formation and diffuse facet hypertrophic change. HARDWARE: None in the spine. INDIVIDUAL DISC LEVELS: No significant osseous spinal canal stenosis. Right-sided neural foramina demonstrate bony compromise C4-5 and C5-6 primarily. UPPER THORACIC: Incompletely imaged. No significant osseous spinal stenosis or osseous neural foraminal stenosis. SKULL BASE: No significant finding. LUNG APICES: No significant abnormality. NECK SOFT TISSUES: No significant abnormality. OTHER: No other significant findings. IMPRESSION: 1. No acute C-spine abnormality. 2. Moderately severe degenerative changes. THIS IS AN ELECTRONICALLY VERIFIED FINAL REPORT 02/25/2025 10:41 AM - Electronically signed by Alejandro Dunbar M.D. RB: TREMAINE Report ID: [id number] Reading Location: [id number] Procedure Note Alejandro Dunbar MD - 02/25/2025 EXAM DESCRIPTION: CT CERVICAL SPINE WO CONTRAST REASON FOR STUDY: Fall with head injury Fall today hitting her head, small laceration and swelling to righteyebrow TECHNIQUE: Axial images through the cervical spine with sagittal andcoronal reformatted images. Automated exposure control was used as a doseoptimization technique for this examination. COMPARISON: 04/09/2019 FINDINGS: ALIGNMENT: Normal. VERTEBRAE: No fracture. Vertebral body heights well-maintained. DISCS: Moderately severe degenerative changes most pronounced C4 throughC7 with loss of disc height, sclerosis, spur formation and diffuse facet hypertrophic change. HARDWARE: None in the spine. INDIVIDUAL DISC LEVELS: No significant osseous spinal canal stenosis. Right-sided neural foramina demonstrate bony compromise C4-5 and C5-6 primarily. UPPER THORACIC: Incompletely imaged. No significant osseous spinalstenosis or osseous neural foraminal stenosis. SKULL BASE: No significant finding. LUNG APICES: No significant abnormality. NECK SOFT TISSUES: No significant abnormality. OTHER: No other significant findings. IMPRESSION: 1. No acute C-spine abnormality. 2. Moderately severe degenerative changes. THIS IS AN ELECTRONICALLY VERIFIED FINAL REPORT 02/25/2025 10:41 AM - Electronically signed by Alejandro Dunbar M.D. RB: TREMAINE Report ID: [id number] Reading Location: [id number] [facility] IMG CT PROCEDURES Final Re sult * CT Head WO Contrast (02/25/2025 10:04 AM CDT) Anatomical Region Laterality Modality Head and Neck N/A Computed Tomogra phy 02/25/2025 10:3 2 AM CDT Narrative 02/25/2025 10:35 AM CDT EXAM DESCRIPTION: CT HEAD WO CONTRAST REASON FOR STUDY: Fall with head injury Fall today hitting her head, small laceration and swelling to right eyebrow TECHNIQUE: Axial images acquired through the brain without intravenous contrast. Images stored on PACS. Automated exposure control was used as a dose optimization technique for this examination. COMPARISON: 10/14/2022 FINDINGS: BRAIN: No hemorrhage, edema or mass effect. No recent infarct. Normal white matter. EXTRA-AXIAL SPACES: No fluid collections. No masses. CALVARIUM: No fracture. SINUSES/MASTOIDS: No fluid or mucosal thickening. ORBITS: No significant abnormality. OTHER: No other significant abnormality. IMPRESSION: No acute intracranial findings. THIS IS AN ELECTRONICALLY VERIFIED FINAL REPORT 02/25/2025 10:35 AM - Electronically signed by Alejandro Dunbar M.D. RB: TREMAINE Report ID: [id number] Reading Location: [id number] Procedure Note Alejandro Dunbar MD - 02/25/2025 EXAM DESCRIPTION: CT HEAD WO CONTRAST REASON FOR STUDY: Fall with head injury Fall today hitting her head, small laceration and swelling to righteyebrow TECHNIQUE: Axial images acquired through the brain without intravenous contrast. Images stored on PACS. Automated exposure control was used asa dose optimization technique for this examination. COMPARISON: 10/14/2022 FINDINGS: BRAIN: No hemorrhage, edema or mass effect. No recent infarct. Normal white matter. EXTRA-AXIAL SPACES: No fluid collections. No masses. CALVARIUM: No fracture. SINUSES/MASTOIDS: No fluid or mucosal thickening. ORBITS: No significant abnormality. OTHER: No other significant abnormality. IMPRESSION: No acute intracranial findings. THIS IS AN ELECTRONICALLY VERIFIED FINAL REPORT 02/25/2025 10:35 AM - Electronically signed by Alejandro Dunbar M.D. RB: TREMAINE Report ID: [id number] Reading Location: [place] [id number] PROCEDURES Final Re sult * Screening Mammogram Bilateral W Gregg (08/02/2023 2:41 PM PROTECTION MANAGER) Anatomical Region Laterality Modality Breast Bilateral Mammography 08/02/2023 3:30 PM PROTECTION MANAGER Impressions 08/02/2023 3:30 PM PROTECTION MANAGER There is no mammographic evidence of malignancy. A 1 year screening mammogram is recommended. BI-RADS: 1 - Negative. The patient has been or will be contacted. The patient will be entered into a reminder system with a target due date of 1 year for her next mammogram. Electronically signed by: Genesis Lane M.D. Narrative 08/02/2023 3:30 PM PROTECTION MANAGER EXAMINATION: SCREENING MAMMOGRAM BILATERAL W GREGG ORDERING HEALTHCARE PROVIDER: BALTAZAR SEYMOUR HISTORY: Routine screening mammography. COMPARISON: 06/21/2022, 06/16/2021, 05/27/2020 TECHNIQUE: CC and MLO views of the bilateral breasts were obtained with digital technique using breast tomosynthesis with C view. Computer aided detection was utilized. FINDINGS: DENSITY: There are scattered fibroglandular elements in the bilateral breasts. BREASTS: There are no suspicious masses, suspicious calcifications, or other suspicious findings in either breast. There has been no suspicious interval change. us Baltazar Seymour MD IMG MAMMO PROCEDURES Final R esult * Dexa Axial Skeleton Bone Density 1 or 2 Site (04/30/2019 2:16 PM CDT) Anatomical Region Laterality Modality Body N/A Other 04/30/2019 2:16 PM CDT Impressions 04/30/2019 2:17 PM CDT 1. OSTEOPENIA OF THE LEFT HIP. 2. OSTEOPENIA OF THE LUMBAR SPINE. COMMENT: W.H.O. defines the T-score of between -1 and -2.5 as osteopenia, the level at which there may be an increased risk of developing osteoporosis and fractures in the future. Osteoporosis is defined as T-score lower than -2.5 (significantly increased risk of fracture due to osteoporosis). T-score is a comparison to peak bone mineral density of young adult reference population. Z-score is a comparison to bone mineral density of sex and age group population. Electronically signed by: Elijah Reyes M.D. Narrative 04/30/2019 2:17 PM CDT DEXA AXIAL SKELETON BONE DENSITY 1 OR MORE SITES HISTORY: Postmenopausal osteoporosis evaluation. Vitamin D deficiency. COMPARISON: None available. FINDINGS: DXA LEFT HIP RESULTS SUMMARY: 1. Femoral neck BMD 0.725 (g/cmsquared); T-SCORE -1.1 2. Total hip BMD 0.981 (g/cmsquared); T-SCORE 0.3 10 year Fracture Risk (FRAX Version 3.01) Major Osteoporotic Fracture-8.5% Hip Fracture-1.3% DXA L-SPINE RESULTS SUMMARY: 1. Total lumbar BMD 0.889 (g/cmsquared); T-SCORE -1.4 Procedure Note Elijah Reyes MD - 04/30/2019 DEXA AXIAL SKELETON BONE DENSITY 1 OR MORE SITES HISTORY: Postmenopausal osteoporosis evaluation. Vitamin D deficiency. COMPARISON: None available. FINDINGS: DXA LEFT HIP RESULTS SUMMARY: 1. Femoral neck BMD 0.725 (g/cmsquared); T-SCORE -1.1 2. Total hip BMD 0.981 (g/cmsquared); T-SCORE 0.3 10 year Fracture Risk (FRAX Version 3.01) Major Osteoporotic Fracture-8.5% Hip Fracture-1.3% DXA L-SPINE RESULTS SUMMARY: 1. Total lumbar BMD 0.889 (g/cmsquared); T-SCORE -1.4 IMPRESSION: 1. OSTEOPENIA OF THE LEFT HIP. 2. OSTEOPENIA OF THE LUMBAR SPINE. COMMENT: W.H.O. defines the T-score of between -1 and -2.5 as osteopenia, the level at which there may be an increased risk of developing osteoporosis and fractures in the future. Osteoporosis is defined as T-score lower than -2.5 (significantly increased risk of fracture due to osteoporosis). T-score is a comparison to peak bone mineral density of young adult reference population. Z-score is a comparison to bone mineral density of sex and age group population. Electronically signed by: Elijah Reyes M.D. us Danita Peña NP [facility] [place]ED[place] Final Result * COLONOSCOPY (04/03/2019 9:34 AM CDT) Anatomical Region Laterality Modality Other Narrative Procedure Note Mac Lindquist MD - 04/03/2019 9:34 AM CDT [place] Patient Name: Deborah Argueta Procedure Date: 04/03/2019 9:34 AM Date of : 1945 Admit Type: Outpatient Age: 73 Gender: Female Attending MD: Mac Lindquist M.D. Room: [facility] RO[facility] 2 Note Status: Finalized Patient Profile: Refer to note in patient chart for documentation of history and physical. Procedure: Colonoscopy Indications: Screening for colorectal malignant neoplasm, Last colonoscopy: March 2012 Referring MD: Nahum Thomas M.D. Providers: Mac Lindquist M.D. Impression: - Diverticulosis in the sigmoid colon. - The examination was otherwise normal. - No specimens collected. Recommendation: - Discharge patient to home. - Resume previous diet. - Continue present medications. - Repeat colonoscopy in 10 years for screeningpurposes. - Return to primary care physician as previously scheduled. Medicines: Propofol per Anesthesia Complications: No immediate complications. Estimated Blood Loss: Estimated blood loss: none. Procedure: Pre-Anesthesia Assessment: - This assessment was completed [Time of Assessment] prior to the administration of sedation. The benefits, risks and alternatives of theprocedure and sedation were discussed and informed consent was obtained. All questions were answered. Please referto the signed informed consent document in the medical record. The scope was passed under direct vision.The Colonoscope [id number] was introducedthrough the anus and advanced to the the cecum, identifiedby appendiceal orifice and ileocecal valve. Bowel prepwas administered using a single dose. The bowelpreparation used was Miralax. The bowel preparation used was Miralax. The bowel preparation used was bisacodyl tablets. The colonoscopy was performed without difficulty. The patient tolerated the procedurewell. The quality of the bowel preparation was good. Findings: The perianal and digital rectal examinations were normal. Multiple small and large-mouthed diverticula were found in thesigmoid colon. The exam was otherwise without abnormality. Electronically signed by Mac R. Lexa, M.D. Mac Lindquist M.D. 04/03/2019 9:57:55 AM Number of Addenda: 0 Note Initiated On: 04/03/2019 9:34 AM Procedure Code(s): --- Professional --- G0121, Colorectal cancer screening; colonoscopy on individual not meeting criteria for high risk Diagnosis Code(s): --- Professional --- K57.30, Diverticulosis of large intestine without perforation orabscess without bleeding Z12.11, Encounter for screening for malignant neoplasm of colon CPT copyright 2017 [employer]. All rights reserved. The codes documented in this report are preliminary and upon furniture finisher helper reviewmay be revised to meet current compliance requirements. Recognized by the [employer] for promoting quality in endoscopy Mac Lindquist MD ENDOSCOPY PROCEDURES Final Re sult from Last 3 Months or Most Recently Relevant to Health Maintenance Insurance [facility] Advance Directives For more information, please contact: [phone] * Full Code (Latest Code Status on File) Date Activated Date Inactivated Comments 08/07/2021 7:39 AM 08/07/2021 1:31 PM * Full Code Date Activated Date Inactivated Comments 08/07/2021 7:39 AM 08/07/2021 7:39 AM * Full Code Date Activated Date Inactivated Comments 04/03/2019 8:58 AM 04/03/2019 2:48 PM * Full Code Date Activated Date Inactivated Comments 04/03/2019 8:58 AM 04/03/2019 8:58 AM Care Teams Legal Director Relationship Specialty Start Date End Date Nani Man NP [address] [place] [address] PCP - General Internal Medicine 02/25/25
--- OUTSIDE RECORDS SUMMARY | 2025-05-03 15:03 | XMS_ITS | Clinical Summary ---
Author Organization [facility] Address [facility] [place] [address] Care Team Providers Care Geropsychologist Name Role Phone Unavailable Primary Care Provider Unavailabl e Source Comments [facility],non-owned Affiliates and Associated Physician Practices is amultiple site organization consisting of ambulatory clinics and hospital sitesin [place], [place], [place] and [place]. This disclosure is being madepursuant to the Care Everywhere program and may not contain all information available regarding this patient. Last updated 18.[facility] Allergies No known active allergies Medications * Be aware that medications may not be up to date on this document. Alwaysverify current medications with the patient. lisinopril-hydro chlorothiazide (PRINZIDE; ZESTORETIC) 20-12.5 MG tablet Take 1 Tab by mouth daily. Active atenolol (TENORMIN) 100 MG tablet Take 100 mg by mouth daily. Active levothyroxine (SYNTHROID) 112 MCG tablet Take 112 mcg by mouth daily before breakfast. Active Omeprazole 20 MG TBEC Take 20 mg by mouth daily before breakfast. Active Active Problems Problem Noted Date Diagnosed Date Pinched nerve 01/20/2010 Family History Medical History Relation Name Comments Cancer Father Arthritis - Rheumatoid Maternal Grandmother Heart Failure Maternal Grandmother Cancer Mother Asthma Other Cancer Sister 2 Relation Name Status Comments Brother 1 Alive Brother 2 Brother 3 Father Cancer Maternal Grandmother Mother Cancer Other Sister 1 Alive Had Cancer Surg myla Sister 2 Social History Tobacco Use Types Packs/Day Years Used Date Smoking Tobacco: Former Alcohol Use Standard Drinks/Week Comments No 0 (1 standard drink = 0.6 oz pur e alcohol) Comments No Sex and Gender Information Value Date Recorded Sex Assigned at Not on file Legal 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 Gender Identity Not on file Sexual Orientation Not on file 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 Not on file Not on file Not on file Last Filed Vital Signs Vital Sign Reading Time Taken Comments Blood Pressure - - Pulse - - Temperature - - Respiratory Rate - - Oxygen Saturation - - Inhaled Oxygen Concentration - - Weight 98 kg (216 lb) 01/20/2010 3:40 PM CDT Height 152.4 cm (5') 01/20/2010 3:40 PM CDT Body Mass Index 42.18 01/20/2010 3:40 PM CDT Plan of Treatment Health Maintenance Due Date Last Done Comments BONE DENSITY TESTING 1945 DTAP/TDAP/TD VACCINES (1 - Tdap) 1963 PNEUMOCOCCAL VACCINE 50+ (1 of 1 - PCV) 1994 ZOSTER VACCINE (1 of 2) 1994 Respiratory Syncytial Virus (RSV) Vaccine Pt: or over 60 yrs (1 - 1-dose 75+ series) 2019 DEPRESSION SCREENING 07/15/2024 COVID-19 VACCINE ( - 2023-2 5 season) 2025 INFLUENZA VACCINE (#1) 2025 HEPATITIS B VACCINE Aged Out No longe r eligible based on patient's age to complete this topic HIB VACCINE Aged Out No longer eligi ble based on patient's age to complete this topic HPV VACCINE Aged Out No longer eligi ble based on patient's age to complete this topic MENINGOCOCCAL (Group B) VACC INE SHARED DECISION-MAKING Aged Out No longer eligibl e based on patient's age to complete this topic MENINGOCOCCAL GROUPS A/C/Y/W VACCINE Aged Out No longer eligible b ased on patient's age to complete this topic Insurance [facility] MEDICARE
== END 2025-05-03 14:00 | disposition home or self-care (01) ==
DX: R53.81 Other malaise (principal); Z20.822 Contact with and (suspected) exposure to COVID-19; Z87.891 Personal history of nicotine dependence; I10 Essential (primary) hypertension; E03.9 Hypothyroidism, unspecified
CPT/HCPCS: 87426; 87804; 99212; G0463